=== PATIENT | female | born 1985 | race Caucasian/White ===

== ENCOUNTER 2019-12-02 15:07 | Emergency (ER) | payer SELFPAY ==
[~2019-12-02] VITALS: Ht 157.5 cm; Wt 79.4 kg
[2019-12-02 15:24] VITALS: BP_SYST 120
[2019-12-05 07:37] VITALS: BP_SYST 120
== END 2019-12-02 17:00 | disposition home or self-care (01) ==
LOC: SED 15:07
DX: R21 Rash and other nonspecific skin eruption (principal)
CPT/HCPCS: 99281